=== PATIENT | female | born 1975 | race Caucasian/White ===

== ENCOUNTER 2021-04-27 14:07 | Emergency (ER) | payer OTHER ==
[~2021-04-27] VITALS: Ht 165.1 cm; Wt 74.8 kg
--- NOTE | 2021-04-27 14:15 | NUR ---
Placed in room 3 . Placed on youth nutritional monitor, blood pressure machine and pulse oximeter. To gown for exam. Side rails up. Report given to NATIVIDAD Pang.
--- NOTE | 2021-04-27 14:17 | NUR ---
Pt came into ER with complaint of right sided flank pain 04/26. Pt reports she has a history of kidney stones. Pt AAOX4 resting in gurney guarding pain to right flank.
[2021-04-27 14:20] VITALS: BP_SYST 135
--- NOTE | 2021-04-27 14:20 | NUR ---
Urine collected and sent to lab.
[2021-04-27] MEDS ORDERED: KETOROLAC TROMETHAMINE 30 MG VIAL IVP ONE (14:30)
[2021-04-27] MEDS ORDERED: NACL 0.9% 1,000 ML IV ONE (14:30)
--- NOTE | 2021-04-27 14:30 | NUR ---
# 20 gauge angiocath placed to RAC. Use of asceptic technique. Opsite placed over site. Blood return noted. Blood for lab drawn from site. Flushed with 10 cc of normal saline. No evidence of infiltration noted. Patient tolerated well. Blood collected and sent to lab.
[2021-04-27 14:32] LABS: BILIRUBIN,URINE NEGATIVE (NEGATIVE); BLOOD, URINE 3+ (NEGATIVE); CLARITY/URINE CLOUDY (CLEAR); GLUCOSE,URINE NEGATIVE (NEGATIVE); KETONES,URINE NEGATIVE (NEGATIVE); LEUKOCYTE ESTERASE ,URINE 1+ (NEGATIVE); NITRITE, URINE NEGATIVE (NEGATIVE); PROTEIN URINE 2+ (NEGATIVE); UROBILINOGEN,URINE 0.2 (0.2-1.0)
--- NOTE | 2021-04-27 14:35 | NUR ---
FARTUN Santamaria at bedside examining patient.
[2021-04-27 14:36] LABS: COLOR,URINE YELLOW (YELLOW)
--- NOTE | 2021-04-27 14:39 | NUR ---
Patient transported to radiology via Wheelchair, accompanied by Tech.
[2021-04-27 14:45] LABS: RBC,URINE 20-50 /HPF (0-3)
[2021-04-27 14:46] LABS: BACTERIA,URINE MODERATE /HPF (None Seen); MUCUS,URINE 1+ /LPF (None Seen)
--- NOTE | 2021-04-27 14:53 | NUR ---
Pt back from CT and reatt[facility] to monitors[facility]
[2021-04-27 14:55] LABS: BASOPHILS # (AUTO) 0.1 K/uL (0.0-0.2); BASOPHILS % (AUTO) 0.4 % (0.0-2.0); EOSINOPHILS # (AUTO) 0.2 K/uL (0.0-0.4); EOSINOPHILS % (AUTO) 1.9 % (0.0-4.0); HEMATOCRIT 41.8 % (36-48); HEMOGLOBIN 13.8 g/dL (12.0-16.0); LYMPHOCYTES # (AUTO) 4.1 K/uL (1.0-5.5); LYMPHOCYTES % (AUTO) 32.7 % (20.5-51.5); MEAN CORPUSCULAR HEMOGLOBIN 30 pg (27-31); MEAN CORPUSCULAR HGB CONC 33 % (32-36); MEAN CORPUSCULAR VOLUME 90 fL (79.0-98.0); MONOCYTES # (AUTO) 0.7 K/uL (0.0-1.0); MONOCYTES % (AUTO) 5.9 % (1.7-9.3); NEUTROPHILS # (AUTO) 7.4 K/uL (1.8-7.7); NEUTROPHILS % (AUTO) 59.1 % (40.0-70.0); PLATELET COUNT (AUTO) 278 K/uL (130-430); RED BLOOD CELL COUNT(AUTO) 4.67 MIL/uL (4.2-6.2); RED CELL DISTRIBUTION WIDTH 13.2 % (9.0-15.0); WHITE BLOOD COUNT (AUTO) 12.5 K/uL (4.8-10.8)
[2021-04-27 15:02] LABS: CALCIUM 8.7 mg/dL (8.4-11.0); CREATININE 0.74 mg/dL (0.55-1.30); POTASSIUM 3.4 mmol/L (3.5-5.1)
[2021-04-27 15:07] LABS: ALBUMIN 3.8 g/dL (3.4-4.8); TOTAL BILIRUBIN 0.2 mg/dL (0.0-1.0)
[2021-04-27] MEDS ORDERED: cefTRIAXone 1 GM in D5W 50 ML IV ONE (15:15)
[2021-04-27] MEDS ORDERED: cefTRIAXone 1 GM VIAL ONE (15:22)
--- NOTE | 2021-04-27 15:52 | NUR ---
Urine collected and sent to lab.
[2021-04-27 16:06] LABS: BILIRUBIN,URINE NEGATIVE (NEGATIVE); BLOOD, URINE 3+ (NEGATIVE); COLOR,URINE YELLOW (YELLOW); GLUCOSE,URINE NEGATIVE (NEGATIVE); KETONES,URINE NEGATIVE (NEGATIVE); LEUKOCYTE ESTERASE ,URINE 1+ (NEGATIVE); NITRITE, URINE NEGATIVE (NEGATIVE); PROTEIN URINE 2+ (NEGATIVE); UROBILINOGEN,URINE 0.2 (0.2-1.0)
[2021-04-27 16:16] LABS: CLARITY/URINE HAZY (CLEAR)
[2021-04-27 16:17] LABS: BACTERIA,URINE FEW /HPF (None Seen); MUCUS,URINE None Seen /LPF (None Seen); WBC,URINE 20-50 /HPF (0-3)
[2021-04-27] MEDS ORDERED: MORPHINE 4 MG INJ. 4 MG/ML VIAL IVP ONE (17:00)
--- NOTE | 2021-04-27 17:03 | NUR ---
Dr. Gonzalez at bedside speaking with pt.
--- NOTE | 2021-04-27 17:06 | NUR ---
Pt resting in gurney attached to monitor no distress noted.
--- NOTE | 2021-04-27 17:14 | NUR ---
Lab at bedside.
--- NOTE | 2021-04-27 17:15 | NUR ---
Medication reconciliation completed with information provided by Santosh HENSON. Any prior medication reconciliation on file was reviewed and corrected.
--- NOTE | 2021-04-27 17:17 | NUR ---
Covid swab collected and sent to lab.
[2021-04-27] MEDS ORDERED: OXYC-128 PO (17:20)
[2021-04-27] MEDS ORDERED: ONDA-8 TL (17:20)
--- NOTE | 2021-04-27 17:23 | NUR ---
Pt belongings reviwed with pt and updated in chart.
--- NOTE | 2021-04-27 17:25 | NUR ---
Dr. Gonzalez at bedside speaking with pt.
[2021-04-27] MEDS ORDERED: LEVO500T89 PO (17:30)
[2021-04-27 17:39] VITALS: BP_SYST 104
--- NOTE | 2021-04-27 17:39 | NUR ---
Patient given written and verbal discharge instructions and verbalizes understanding. ER MD discussed with patient the results and treatment provided. Patient in stable condition. ID arm band removed. IV catheter removed intact and dressing applied, no active bleeding. Rx of Levaquin,Zofran, Percocet given. Patient educated on pain management and to follow up with PMD. Pain Scale 0/10. Opportunity for questions provided and answered. Medication side effect fact sheet provided.
== END 2021-04-27 17:39 | disposition home or self-care (01) ==
LOC: SED 14:07
DX: N20.1 Calculus of ureter (principal); Z79.899 Other long term (current) drug therapy; Z20.822 Contact with and (suspected) exposure to COVID-19
CPT/HCPCS: 36415; 74176; 76376; 80053; 81000; 81025; 83605; 85025; 87040; 87086; 87426; 96365; 96375; 99284; J0696; J1885; J2270

== ENCOUNTER 2021-07-02 10:02 | Emergency (ER) | payer OTHER ==
[~2021-07-02] VITALS: Ht 165.1 cm; Wt 68.0 kg
[~2021-07-02 10:02] MED LIST: LEVO500T89 PO; ONDA-8 TL; OXYC-128 PO
--- NOTE | 2021-07-02 10:03 | NUR ---
BROUGHT BACK TO BED #8 AND TRIAGED. REPORT GIVEN TO GRACY
[2021-07-02 10:05] VITALS: BP_SYST 128
--- NOTE | 2021-07-02 10:05 | NUR ---
Pt brought by self, A&Ox4, pt presents to ER with rectal bleeding (bright red) , states she has a lithrotipsy recently, denies N/V, denies blood in the urine, skin pink and warm, cap refill <3, will cont to monitor.
--- NOTE | 2021-07-02 10:25 | NUR ---
DR VILLELA AT BEDSIDE FOR EVALUATION
--- NOTE | 2021-07-02 11:00 | NUR ---
Rectal exam performed by Dr Sanford with myself at bedside during procedure. Patient tolerated well.
[2021-07-02 11:14] LABS: BASOPHILS % (AUTO) 0.3 % (0.0-2.0); EOSINOPHILS # (AUTO) 0.2 K/uL (0.0-0.4); EOSINOPHILS % (AUTO) 3.4 % (0.0-4.0); HEMATOCRIT 37.7 % (36-48); HEMOGLOBIN 13.2 g/dL (12.0-16.0); LYMPHOCYTES # (AUTO) 1.1 K/uL (1.0-5.5); LYMPHOCYTES % (AUTO) 16.1 % (20.5-51.5); MEAN CORPUSCULAR HEMOGLOBIN 31 pg (27-31); MEAN CORPUSCULAR HGB CONC 35 % (32-36); MEAN CORPUSCULAR VOLUME 88 fL (79.0-98.0); MONOCYTES # (AUTO) 0.4 K/uL (0.0-1.0); MONOCYTES % (AUTO) 6.2 % (1.7-9.3); NEUTROPHILS # (AUTO) 5.2 K/uL (1.8-7.7); PLATELET COUNT (AUTO) 220 K/uL (130-430); RED BLOOD CELL COUNT(AUTO) 4.29 MIL/uL (4.2-6.2); RED CELL DISTRIBUTION WIDTH 12.6 % (9.0-15.0)
[2021-07-02 11:28] LABS: CALCIUM 8.7 mg/dL (8.4-11.0); CREATININE 0.83 mg/dL (0.55-1.30); POTASSIUM 3.9 mmol/L (3.5-5.1)
[2021-07-02 11:33] LABS: ALBUMIN 3.5 g/dL (3.4-4.8); PROTHROMBIN TIME 10.8 SECS (9.5-12.5); TOTAL BILIRUBIN 0.3 mg/dL (0.0-1.0)
[2021-07-02 11:40] LABS: BILIRUBIN,URINE NEGATIVE (NEGATIVE); BLOOD, URINE 2+ (NEGATIVE); COLOR,URINE YELLOW (YELLOW); GLUCOSE,URINE NEGATIVE (NEGATIVE); KETONES,URINE NEGATIVE (NEGATIVE); LEUKOCYTE ESTERASE ,URINE TRACE (NEGATIVE); NITRITE, URINE NEGATIVE (NEGATIVE); PH,URINE 6.5 (5.0-8.0); PROTEIN URINE NEGATIVE (NEGATIVE); UROBILINOGEN,URINE 0.2 (0.2-1.0)
[2021-07-02 11:42] LABS: CLARITY/URINE SLIGHTLY HAZY (CLEAR)
[2021-07-02 12:22] LABS: BACTERIA,URINE MODERATE /HPF (None Seen)
--- NOTE | 2021-07-02 12:30 | NUR ---
Pt off the unit for US
--- NOTE | 2021-07-02 13:20 | NUR ---
PT RESTING IN BED, NO S/SX OF DISTRESS, V/S STABLE
[2021-07-02] MEDS ORDERED: ANURH RC (13:31)
[2021-07-02 13:50] VITALS: BP_SYST 124
--- NOTE | 2021-07-02 13:53 | NUR ---
Patient given written and verbal discharge instructions and verbalizes understanding. ER MD discussed with patient the results and treatment provided. Patient in stable condition. ID arm band removed. Rx of ANUSOL HC SUPPOSITORY given. Patient educated on pain management and to follow up with PMD. Pain Scale 0/10. Opportunity for questions provided and answered. Medication side effect fact sheet provided.
== END 2021-07-02 13:53 | disposition home or self-care (01) ==
LOC: SED 10:02
DX: K64.8 Other hemorrhoids (principal); K62.5 Hemorrhage of anus and rectum; Z79.899 Other long term (current) drug therapy
CPT/HCPCS: 36415; 76830-TC; 76857; 80053; 81000; 81025; 85025; 85610-TC; 87086; 99284